=== PATIENT | male | born 1990 | race Two or more races ===

== ENCOUNTER 2024-09-29 12:19 | Emergency (ER) | payer BC, OTHER ==
[~2024-09-29] VITALS: Ht 172.7 cm; Wt 134.2 kg
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
[2024-09-29 16:30] VITALS: BP 124/76; PULSE 100; RESP 20; TEMP 98.1; O2SAT 95
== END 2024-09-29 17:05 | disposition home or self-care (01) ==
LOC: ER 12:19
DX: M54.50 Low back pain, unspecified (principal); V89.2XXA Person injured in unspecified motor-vehicle accident, traffic, initial encounter; Y93.89 Activity, other specified; Y92.89 Other specified places as the place of occurrence of the external cause; Y99.8 Other external cause status